=== PATIENT | male | born 1965 | race Caucasian/White ===

== ENCOUNTER → 2022-05-17 | Outpatient (CLI) | payer OTHER ==
[~2022-05-17] MED LIST: CATAFLAM50 MG PO; CORDROL20 MG PO; FLEXERIL10 MG PO; IBU-8800 MG PO; MEDROL DOSEPAK4 MG PO; MOTRIN800 MG PO; Motrin,Rufen800 MG PO; NO DAILY MEDS; PENICILLIN-VK500 MG PO; ROBAXIN750 MG PO; VIBRAMYCIN100 MG PO; VICODIN 5/500 505 MG PO; VOLTAREN75 MG PO; ZOFRAN ODT4 MG SL
== END | disposition home or self-care (01) ==
LOC: CT 09:40
PROVIDERS: ATTEND Family Medicine
DX: J43.8 Other emphysema (principal); R91.8 Other nonspecific abnormal finding of lung field

== ENCOUNTER 2024-01-20 09:59 | Emergency (ER) | payer OTHER ==
[~2024-01-20] VITALS: Ht 172.7 cm; Wt 88.9 kg
[2024-01-20] MEDS ORDERED: Ondansetron Hydrochloride 4 MG TAB SL ONE (10:10)
[2024-01-20] MEDS ORDERED: Ondansetron4 MG PO (11:23)
== END 2024-01-20 11:27 | disposition home or self-care (01) ==
LOC: ED 09:59
DX: B34.9 Viral infection, unspecified (principal); Z20.822 Contact with and (suspected) exposure to COVID-19